=== PATIENT | female | born 1940 | race Caucasian/White ===

== ENCOUNTER 2016-11-27 12:59 | Outpatient (CLI) | payer MEDICARE | END 2016-11-27 13:00 | disposition home or self-care (01) | DX: R60.0 Localized edema (principal) ==

== ENCOUNTER 2016-12-25 10:16 | Outpatient (CLI) | payer MEDICARE ==
[2016-12-25 18:49] LABS: BASOPHILS # (AUTO) 0.1 10^3/uL (0.0-0.1); EOSINOPHILS # (AUTO) 0.3 10^3/uL (0.0-0.7); EOSINOPHILS % (AUTO) 4.7 %; HCT - HEMATOCRIT 41.8 % (37.0-47.0); HGB - HEMOGLOBIN 13.4 g/dL (12.0-16.0); LYMPHOCYTES # (AUTO) 1.9 10^3/uL (1.5-3.5); LYMPHOCYTES % (AUTO) 25.5 %; MEAN CORPUSCULAR HEMOGLOBIN 31.3 pg (27.0-31.0); MEAN CORPUSCULAR VOLUME 97.7 fL (81.0-99.0); MEAN PLATELET VOLUME 10.5 fL (7.9-10.8); MONOCYTES # (AUTO) 0.7 10^3/uL (0.0-1.0); MONOCYTES % (AUTO) 9.7 %; NEUTROPHILS # (AUTO) 4.4 10^3/uL (1.5-6.6); NEUTROPHILS % (AUTO) 59.1 %; NUCLEATED RED BLOOD CELLS AUTO 0.2 /100WBC; RED BLOOD COUNT 4.27 10^6/uL (4.20-5.40); RED CELL DISTRIBUTION WIDTH 14.2 % (12.0-15.0); UNCORRECTED WHITE BLOOD COUNT 7.4 x10^3/uL; WHITE BLOOD COUNT 7.4 x10^3/uL (4.8-10.8)
[2016-12-25 19:41] LABS: ALBUMIN/GLOBULIN RATIO 1.3 (1.0-2.2); BILIRUBIN,TOTAL 0.6 mg/dL (0.2-1.0); BUN - BLOOD UREA NITROGEN 29 mg/dL (6-20); CALCIUM 9.1 mg/dL (8.5-10.3); CARBON DIOXIDE - CO2 24 mmol/L (21-32); CHLORIDE 107 mmol/L (101-111); CHOLESTEROL 228 mg/dL; CREATININE 1.1 mg/dL (0.4-1.0); GFR - MDRD 48 (>89); GLUCOSE 111 mg/dL (70-100); HDL CHOLESTEROL 57 mg/dL; LDL/HDL RATIO 2.4 (<4.4); POTASSIUM 4.2 mmol/L (3.5-5.0); SODIUM 141 mmol/L (135-145); TOTAL PROTEIN 6.7 g/dL (6.7-8.2); TRIGLYCERIDES 166 mg/dL; VLDL CHOLESTEROL 33 mg/dL
== END 2016-12-25 10:17 | disposition home or self-care (01) ==
LOC: LAB.F 10:16
PROVIDERS: ATTEND Family Medicine
DX: R60.0 Localized edema (principal); R53.83 Other fatigue; D50.9 Iron deficiency anemia, unspecified; I10 Essential (primary) hypertension
CPT/HCPCS: 36415; 80053; 80061; 85025

== ENCOUNTER 2017-01-05 11:06 | Outpatient (CLI) | payer MEDICARE | END 2017-01-05 11:07 | disposition home or self-care (01) | DX: R73.01 Impaired fasting glucose (principal) ==

== ENCOUNTER 2017-02-09 13:36 | Outpatient (CLI) | payer MEDICARE | END 2017-02-09 13:37 | disposition home or self-care (01) | DX: Z12.31 Encounter for screening mammogram for malignant neoplasm of breast (principal) ==

== ENCOUNTER 2017-03-02 14:19 | Outpatient (CLI) | payer MEDICARE | END 2017-03-02 14:20 | disposition home or self-care (01) | DX: N63 Unspecified lump in breast (principal) | CPT/HCPCS: 76642; G0206 ==

== ENCOUNTER 2017-07-05 10:10 | Outpatient (CLI) | payer MEDICARE ==
[2017-07-05 18:23] LABS: BUN - BLOOD UREA NITROGEN 31 mg/dL (6-20); CALCIUM 8.7 mg/dL (8.5-10.3); CARBON DIOXIDE - CO2 24 mmol/L (21-32); CHLORIDE 111 mmol/L (101-111); CHOL/HDL RATIO 3.8 (<4.4); CHOLESTEROL 226 mg/dL; CREATININE 1.1 mg/dL (0.4-1.0); GFR - MDRD 48 (>89); GLUCOSE 109 mg/dL (70-100); HDL CHOLESTEROL 60 mg/dL; LDL/HDL RATIO 2.2 (<4.4); POTASSIUM 3.9 mmol/L (3.5-5.0); SODIUM 139 mmol/L (135-145); TRIGLYCERIDES 159 mg/dL; VLDL CHOLESTEROL 32 mg/dL
[2017-07-05 18:55] LABS: HEMOGLOBIN A1C 0.55 g/dL
== END 2017-07-05 10:11 | disposition home or self-care (01) ==
LOC: LAB.F 10:10
PROVIDERS: ATTEND Internal Medicine
DX: I10 Essential (primary) hypertension (principal)
CPT/HCPCS: 36415; 80048; 80061; 83036

== ENCOUNTER 2017-11-08 15:01 | Outpatient (CLI) | payer MEDICARE ==
[2017-11-08 18:51] LABS: BASOPHILS # (AUTO) 0.1 10^3/uL (0.0-0.1); EOSINOPHILS # (AUTO) 0.3 10^3/uL (0.0-0.7); EOSINOPHILS % (AUTO) 3.3 %; HCT - HEMATOCRIT 40.3 % (37.0-47.0); HGB - HEMOGLOBIN 13.1 g/dL (12.0-16.0); LYMPHOCYTES # (AUTO) 1.9 10^3/uL (1.5-3.5); LYMPHOCYTES % (AUTO) 19.7 %; MEAN CORPUSCULAR HEMOGLOBIN 32.6 pg (27.0-31.0); MEAN CORPUSCULAR HGB CONC 32.5 g/dL (32.0-36.0); MEAN CORPUSCULAR VOLUME 100.2 fL (81.0-99.0); MEAN PLATELET VOLUME 10.1 fL (7.9-10.8); MONOCYTES # (AUTO) 0.9 10^3/uL (0.0-1.0); NEUTROPHILS # (AUTO) 6.4 10^3/uL (1.5-6.6); RED BLOOD COUNT 4.03 10^6/uL (4.20-5.40); RED CELL DISTRIBUTION WIDTH 13.8 % (12.0-15.0); UNCORRECTED WHITE BLOOD COUNT 9.5 x10^3/uL; WHITE BLOOD COUNT 9.5 x10^3/uL (4.8-10.8)
[2017-11-08 19:00] LABS: ALBUMIN/GLOBULIN RATIO 1.3 (1.0-2.2); BILIRUBIN,TOTAL 0.4 mg/dL (0.2-1.0); CALCIUM 9.1 mg/dL (8.5-10.3); CREATININE 1.2 mg/dL (0.4-1.0); POTASSIUM 4.3 mmol/L (3.5-5.0); TOTAL PROTEIN 6.9 g/dL (6.7-8.2)
== END 2017-11-08 15:02 | disposition home or self-care (01) ==
LOC: LAB.F 15:01
PROVIDERS: ATTEND Physician Assistant Medical
DX: I10 Essential (primary) hypertension (principal)
CPT/HCPCS: 36415; 80053; 85025

== ENCOUNTER 2018-01-29 13:49 | Outpatient (CLI) | payer MEDICARE ==
[2018-01-29 17:42] LABS: BUN - BLOOD UREA NITROGEN 23 mg/dL (6-20); CALCIUM 9.3 mg/dL (8.5-10.3); CARBON DIOXIDE - CO2 24 mmol/L (21-32); CHLORIDE 106 mmol/L (101-111); CHOL/HDL RATIO 5.5 (<4.4); CHOLESTEROL 225 mg/dL; CREATININE 1.1 mg/dL (0.4-1.0); GFR - MDRD 48 (>89); GLUCOSE 101 mg/dL (70-100); HDL CHOLESTEROL 41 mg/dL; LDL CHOLESTEROL,CALCULATED 142 mg/dL; LDL/HDL RATIO 3.5 (<4.4); SODIUM 138 mmol/L (135-145); VLDL CHOLESTEROL 42 mg/dL
[2018-01-29 17:58] LABS: HB2 TOTAL 14.4 g/dL; HEMOGLOBIN A1C 0.54 g/dL; HEMOGLOBIN A1C % 5.6 % (4.6-6.2)
== END 2018-01-29 13:50 | disposition home or self-care (01) ==
LOC: LAB.F 13:49
PROVIDERS: ATTEND Physician Assistant Medical
DX: N28.9 Disorder of kidney and ureter, unspecified (principal); E78.00 Pure hypercholesterolemia, unspecified; R73.01 Impaired fasting glucose
CPT/HCPCS: 36415; 80048; 80061; 83036; 83721

== ENCOUNTER 2018-08-16 11:06 | Outpatient (CLI) | payer MEDICARE ==
--- NOTE | 2018-08-19 10:10 | Mammography Report ---
Reason: SCREENING MAMMO Procedure Date: 08/16/2018 Accession Number: [id number] / [id number] Procedure: MEAGAN - Screening Mammo Dig Bilat CPT Code: FULL RESULT: EXAM: Screening Mammo Dig Bilat DATE: 08/16/2018 11:36 AM CLINICAL HISTORY: 78 year-old nulliparous female with history of early menses. TECHNIQUE: Bilateral CC and MLO views were obtained. COMPARISON: 03/02/2017, 02/09/2017, 12/07/2015, 09/18/2012. FINDINGS: The breasts demonstrate scattered fibroglandular densities bilaterally. Postsurgical changes are noted bilaterally, unchanged. No suspicious masses, clustered microcalcifications, or regions of architectural distortion are identified. IMPRESSION: Benign findings RECOMMENDATION: Routine annual screening unless otherwise clinically indicated. BIRADS CATEGORY 2: Benign findings STANDARD QUALIFYING STATEMENTS: 1. This examination was not reviewed with the aid of Computer-Aided Detection (CAD). 2. A negative or benign imaging report should not delay biopsy if clinically suspicious findings are present. Consider surgical consultation if warrented. More than 5% of cancers are not identified by imaging. 3. Dense breasts may obscure an underlying neoplasm. 4. This examination was reviewed without the aid of 3D breast imaging (tomosynthesis).
== END 2018-08-16 11:07 | disposition home or self-care (01) ==
LOC: DI 11:06
DX: Z12.31 Encounter for screening mammogram for malignant neoplasm of breast (principal)
CPT/HCPCS: 77067

== ENCOUNTER 2018-12-09 12:25 | Outpatient (CLI) | payer MEDICARE ==
[2018-12-09 17:48] LABS: BASOPHILS # (AUTO) 0.1 10^3/uL (0.0-0.1); BASOPHILS % (AUTO) 1.2 %; EOSINOPHILS # (AUTO) 0.2 10^3/uL (0.0-0.7); EOSINOPHILS % (AUTO) 3.6 %; HGB - HEMOGLOBIN 13.3 g/dL (12.0-16.0); LYMPHOCYTES # (AUTO) 1.7 10^3/uL (1.5-3.5); MEAN CORPUSCULAR HEMOGLOBIN 32.6 pg (27.0-31.0); MEAN CORPUSCULAR HGB CONC 32.3 g/dL (32.0-36.0); MEAN CORPUSCULAR VOLUME 100.8 fL (81.0-99.0); MEAN PLATELET VOLUME 9.4 fL (7.9-10.8); MONOCYTES # (AUTO) 0.6 10^3/uL (0.0-1.0); MONOCYTES % (AUTO) 10.6 %; NEUTROPHILS % (AUTO) 53.6 %; PLT - PLATELET COUNT 193 10^3/uL (130-450); RED BLOOD COUNT 4.08 10^6/uL (4.20-5.40); RED CELL DISTRIBUTION WIDTH 13.8 % (12.0-15.0); WHITE BLOOD COUNT 5.6 x10^3/uL (4.8-10.8)
[2018-12-09 17:58] LABS: PLATELET MORPHOLOGY PLATELET CLUMPING (NORMAL)
[2018-12-09 17:59] LABS: ALBUMIN 3.8 g/dL (3.2-5.5); ALBUMIN/GLOBULIN RATIO 1.2 (1.0-2.2); ALKALINE PHOSPHATASE 52 IU/L (42-121); ALT ALANINE AMINOTRANSFERASE 24 IU/L (10-60); AST ASPARTATE AMINOTRANSFERASE 22 IU/L (10-42); BILIRUBIN,TOTAL 0.6 mg/dL (0.2-1.0); BUN - BLOOD UREA NITROGEN 32 mg/dL (6-20); CARBON DIOXIDE - CO2 26 mmol/L (21-32); CHLORIDE 104 mmol/L (101-111); CHOL/HDL RATIO 4.8 (<4.4); CHOLESTEROL 260 mg/dL; CREATININE 1.1 mg/dL (0.4-1.0); GFR - MDRD 48 (>89); GLUCOSE 99 mg/dL (70-100); HDL CHOLESTEROL 54 mg/dL; LDL CHOLESTEROL,CALCULATED 172 mg/dL; LDL/HDL RATIO 3.2 (<4.4); PLATELET ESTIMATE, MANUAL NORMAL (130-450,000) (NORMAL); RBC MORPHOLOGY (MULTIPLE) 1+ MACROCYTOSIS (NORMAL); SODIUM 137 mmol/L (135-145); TOTAL PROTEIN 6.9 g/dL (6.7-8.2); VLDL CHOLESTEROL 34 mg/dL
[2018-12-09 18:19] LABS: HB2 TOTAL 14.1 g/dL; HEMOGLOBIN A1C 0.48 g/dL; HEMOGLOBIN A1C % 5.3 % (4.6-6.2)
== END 2018-12-09 12:26 | disposition home or self-care (01) ==
LOC: LAB.F 12:25
PROVIDERS: ATTEND Physician Assistant Medical
DX: I10 Essential (primary) hypertension (principal); E78.00 Pure hypercholesterolemia, unspecified; R73.01 Impaired fasting glucose
CPT/HCPCS: 36415; 80053; 80061; 83036; 83721; 85025

== ENCOUNTER 2019-05-11 23:13 | Outpatient (CLI) | payer MEDICARE | END 2019-05-11 23:14 | disposition EMS.NT | LOC: EMS 23:13 | PROVIDERS: ATTEND Surgery | DX: Z03.89 Encounter for observation for other suspected diseases and conditions ruled out (principal) ==

== ENCOUNTER 2019-06-17 12:50 | Outpatient (CLI) | payer MEDICARE ==
[2019-06-17 17:44] LABS: CHOL/HDL RATIO 2.7 (<4.4); CHOLESTEROL 200 mg/dL; HDL CHOLESTEROL 74 mg/dL; LDL CHOLESTEROL,CALCULATED 109 mg/dL; LDL/HDL RATIO 1.5 (<4.4); VLDL CHOLESTEROL 17 mg/dL
== END 2019-06-17 12:51 | disposition home or self-care (01) ==
LOC: LAB.S 12:50
PROVIDERS: ATTEND Physician Assistant Medical
DX: E78.00 Pure hypercholesterolemia, unspecified (principal)
CPT/HCPCS: 36415; 80061; 83721

== ENCOUNTER 2019-08-15 15:22 | Outpatient (CLI) | payer MEDICARE ==
[2019-08-15 18:17] LABS: ALBUMIN 3.6 g/dL (3.2-5.5); ALBUMIN/GLOBULIN RATIO 1.1 (1.0-2.2); BILIRUBIN,TOTAL 0.6 mg/dL (0.2-1.0); CALCIUM 9.1 mg/dL (8.5-10.3); CREATININE 1.1 mg/dL (0.4-1.0); TOTAL PROTEIN 6.8 g/dL (6.7-8.2)
[2019-08-15 19:26] LABS: HB2 TOTAL 12.9 g/dL; HEMOGLOBIN A1C 0.44 g/dL; HEMOGLOBIN A1C % 5.3 % (4.6-6.2)
== END 2019-08-15 15:23 | disposition home or self-care (01) ==
LOC: LAB.S 15:22
PROVIDERS: ATTEND Physician Assistant Medical
DX: R73.9 Hyperglycemia, unspecified (principal); Z79.899 Other long term (current) drug therapy
CPT/HCPCS: 36415; 80053; 83036

== ENCOUNTER 2019-12-04 14:35 | Outpatient (CLI) | payer MEDICARE ==
[2019-12-04 18:53] LABS: CALCIUM 9.3 mg/dL (8.5-10.3); CREATININE 1.3 mg/dL (0.4-1.0)
== END 2019-12-04 14:36 | disposition home or self-care (01) ==
LOC: LAB.S 14:35
PROVIDERS: ATTEND Physician Assistant Medical
DX: N28.9 Disorder of kidney and ureter, unspecified (principal)
CPT/HCPCS: 36415; 80048

== ENCOUNTER 2020-01-25 06:23 | Outpatient (CLI) | payer MEDICARE | END 2020-01-25 06:24 | disposition EMS.NT | LOC: EMS 06:23 | PROVIDERS: ATTEND Surgery | DX: Z03.89 Encounter for observation for other suspected diseases and conditions ruled out (principal) ==

== ENCOUNTER 2020-03-17 15:41 | Outpatient (CLI) | payer MEDICARE ==
[2020-03-17 16:18] LABS: CALCIUM 8.8 mg/dL (8.5-10.3); CREATININE 1.4 mg/dL (0.4-1.0)
[2020-03-17 16:21] LABS: CREATININE,URINE 277.2 mg/dL; PROTEIN/CREATININE RATIO,URINE 0.1 (<=0.2)
== END 2020-03-17 15:42 | disposition home or self-care (01) ==
LOC: LAB 15:41
PROVIDERS: ATTEND Internal Medicine Nephrology
DX: N05.9 Unspecified nephritic syndrome with unspecified morphologic changes (principal); I50.32 Chronic diastolic (congestive) heart failure; D47.2 Monoclonal gammopathy; R80.9 Proteinuria, unspecified
CPT/HCPCS: 36415; 80048; 81599; 82570; 83880; 84155; 84156; 84165; 86334

== ENCOUNTER 2020-04-27 15:53 | Outpatient (CLI) | payer MEDICARE ==
[2020-04-27 19:59] LABS: CREATININE 1.2 mg/dL (0.4-1.0)
== END 2020-04-27 15:54 | disposition home or self-care (01) ==
LOC: LAB.S 15:53
PROVIDERS: ATTEND Internal Medicine Nephrology
DX: N05.9 Unspecified nephritic syndrome with unspecified morphologic changes (principal)
CPT/HCPCS: 36415; 80048

== ENCOUNTER 2020-05-07 13:22 | Outpatient (CLI) | payer MEDICARE ==
[2020-05-07 13:56] LABS: CHOL/HDL RATIO 2.1 (<4.4); CHOLESTEROL 155 mg/dL; HDL CHOLESTEROL 73 mg/dL; LDL CHOLESTEROL,CALCULATED 59 mg/dL; LDL/HDL RATIO 0.8 (<4.4); VLDL CHOLESTEROL 23 mg/dL
[2020-05-07 14:10] LABS: HB2 TOTAL 14.3 g/dL; HEMOGLOBIN A1C 0.51 g/dL; HEMOGLOBIN A1C % 5.4 % (4.6-6.2)
== END 2020-05-07 13:23 | disposition home or self-care (01) ==
LOC: LAB 13:22
PROVIDERS: ATTEND Physician Assistant
DX: R73.01 Impaired fasting glucose (principal); E78.00 Pure hypercholesterolemia, unspecified
CPT/HCPCS: 36415; 80061; 83036; 83721

== ENCOUNTER 2020-08-25 15:03 | Outpatient (CLI) | payer MEDICARE ==
[2020-08-25 20:59] LABS: HEMOGLOBIN A1c% 5.4 % (4.27-6.07)
[2020-08-25 21:15] LABS: ALBUMIN 3.7 g/dL (3.2-5.5); ALBUMIN/GLOBULIN RATIO 1.1 (1.0-2.2); ALKALINE PHOSPHATASE 64 IU/L (42-121); ALT ALANINE AMINOTRANSFERASE 20 IU/L (10-60); AST ASPARTATE AMINOTRANSFERASE 24 IU/L (10-42); BILIRUBIN,TOTAL 0.5 mg/dL (0.2-1.0); BUN - BLOOD UREA NITROGEN 28 mg/dL (6-20); CARBON DIOXIDE - CO2 27 mmol/L (21-32); CHLORIDE 102 mmol/L (101-111); CHOL/HDL RATIO 2.5 (<4.4); CHOLESTEROL 189 mg/dL; CREATININE 1.1 mg/dL (0.4-1.0); GLUCOSE 107 mg/dL (70-100); HDL CHOLESTEROL 76 mg/dL; LDL CHOLESTEROL,CALCULATED 86 mg/dL; LDL/HDL RATIO 1.1 (<4.4); SODIUM 137 mmol/L (135-145); VLDL CHOLESTEROL 27 mg/dL
== END 2020-08-25 15:04 | disposition home or self-care (01) ==
LOC: LAB.S 15:03
PROVIDERS: ATTEND Physician Assistant
DX: I10 Essential (primary) hypertension (principal); R60.9 Edema, unspecified; R73.01 Impaired fasting glucose; N28.9 Disorder of kidney and ureter, unspecified; E78.00 Pure hypercholesterolemia, unspecified
CPT/HCPCS: 36415; 80053; 80061; 83036; 83721

== ENCOUNTER 2021-01-26 12:32 | Outpatient (CLI) | payer MEDICARE ==
--- NOTE | 2021-01-27 14:17 | Mammography Report ---
BILATERAL DIGITAL SCREENING MAMMOGRAM 3D/2D: 01/26/2021 CLINICAL: Routine screening. Comparison is made to exams dated: 08/12/2018 mammogram, 03/02/2017 mammogram, 03/02/2017 ultrasound, mammogram, 12/07/2015 mammogram, and 09/18/2012 mammogram - [facility]. The tissue of both breasts is predominantly fatty. There are benign post operative findings in the right breast. No significant masses, calcifications, or other findings are seen in either breast. There has been no significant interval change. IMPRESSION: BENIGN There is no mammographic evidence of malignancy. A 1 year screening mammogram is recommended. This exam was interpreted at Station ID: [id number]. NOTE: For mammograms, a report in lay terms will be sent to the patient. Approximately 15% of breast malignancies will not be visualized mammographically. In the management of a palpable breast mass, a negative mammogram must not discourage biopsy of a clinically suspicious lesion. Electronically Signed By: Akira Krause M.D. at/limarad:01/26/2021 15:58:14 ACR BI-RADS Category 2: Benign Finding(s) 3342F PARENCHYMAL PATTERN: (F) - The breast(s) demonstrate(s) diffuse fatty replacement. BI-RADS CATEGORY: (2) - 2 RECOMMENDATION: (ANNUAL) - Recommend routine annual screening mammography. [id number] 1 year screening LATERALITY: (B)
== END 2021-01-26 12:33 | disposition home or self-care (01) ==
LOC: DI 12:32
DX: Z12.31 Encounter for screening mammogram for malignant neoplasm of breast (principal)

== ENCOUNTER 2021-03-24 12:23 | Outpatient (CLI) | payer MEDICARE ==
[2021-03-24 14:46] LABS: BASOPHILS # (AUTO) 0.1 10^3/uL (0.0-0.1); BASOPHILS % (AUTO) 1.1 %; EOSINOPHILS # (AUTO) 0.2 10^3/uL (0.0-0.7); EOSINOPHILS % (AUTO) 2.5 %; HGB - HEMOGLOBIN 13.2 g/dL (12.0-16.0); LYMPHOCYTES # (AUTO) 1.9 10^3/uL (1.5-3.5); LYMPHOCYTES % (AUTO) 30.6 %; MEAN CORPUSCULAR HEMOGLOBIN 32.6 pg (27.0-31.0); MEAN CORPUSCULAR HGB CONC 32.2 g/dL (32.0-36.0); MEAN CORPUSCULAR VOLUME 101.2 fL (81.0-99.0); MEAN PLATELET VOLUME 11.1 fL (7.9-10.8); MONOCYTES # (AUTO) 0.6 10^3/uL (0.0-1.0); MONOCYTES % (AUTO) 9.4 %; NEUTROPHILS # (AUTO) 3.6 10^3/uL (1.5-6.6); NEUTROPHILS % (AUTO) 56.2 %; PLT - PLATELET COUNT 124 10^3/uL (130-450); RED BLOOD COUNT 4.05 10^6/uL (4.20-5.40); RED CELL DISTRIBUTION WIDTH 12.9 % (12.0-15.0); WHITE BLOOD COUNT 6.4 x10^3/uL (4.8-10.8)
[2021-03-24 15:05] LABS: ALBUMIN 3.9 g/dL (3.2-5.5); ALBUMIN/GLOBULIN RATIO 1.2 (1.0-2.2); ALKALINE PHOSPHATASE 52 IU/L (42-121); ALT ALANINE AMINOTRANSFERASE 19 IU/L (10-60); AST ASPARTATE AMINOTRANSFERASE 23 IU/L (10-42); BILIRUBIN,TOTAL 0.9 mg/dL (0.2-1.0); BUN - BLOOD UREA NITROGEN 30 mg/dL (6-20); CALCIUM 9.2 mg/dL (8.5-10.3); CARBON DIOXIDE - CO2 25 mmol/L (21-32); CHLORIDE 105 mmol/L (101-111); CHOL/HDL RATIO 2.5 (<4.4); CHOLESTEROL 145 mg/dL; CREATININE 1.3 mg/dL (0.4-1.0); GFR - MDRD 39 (>89); GLUCOSE 101 mg/dL (70-100); HDL CHOLESTEROL 59 mg/dL; LDL CHOLESTEROL,CALCULATED 55 mg/dL; LDL/HDL RATIO 0.9 (<4.4); POTASSIUM 3.9 mmol/L (3.5-5.0); SODIUM 142 mmol/L (135-145); TOTAL PROTEIN 7.1 g/dL (6.7-8.2); TRIGLYCERIDES 154 mg/dL; VLDL CHOLESTEROL 31 mg/dL
[2021-03-24 15:14] LABS: THYROID STIMULATING HORMONE 4.61 uIU/mL (0.34-5.60)
[2021-03-24 20:14] LABS: ESTIMATED AVERAGE GLUCOSE 100 mg/dL (70-100); HEMOGLOBIN A1c% 5.1 % (4.27-6.07)
== END 2021-03-24 12:24 | disposition home or self-care (01) ==
LOC: LAB.S 12:23
PROVIDERS: ATTEND Physician Assistant
DX: I10 Essential (primary) hypertension (principal); R60.9 Edema, unspecified; N28.9 Disorder of kidney and ureter, unspecified; R73.01 Impaired fasting glucose; E78.00 Pure hypercholesterolemia, unspecified; Z68.42 Body mass index [BMI] 45.0-49.9, adult
CPT/HCPCS: 36415; 80053; 80061; 83036; 83721; 83880; 84443; 85025

== ENCOUNTER 2021-05-19 02:21 | Outpatient (CLI) | payer MEDICARE | END 2021-05-19 02:22 | disposition EMS.NT | LOC: EMS 02:21 | DX: Z03.89 Encounter for observation for other suspected diseases and conditions ruled out (principal) ==

== ENCOUNTER 2021-05-27 14:39 | Outpatient (CLI) | payer MEDICARE ==
[2021-05-27 19:45] LABS: HCT - HEMATOCRIT 41.4 % (37.0-47.0); HGB - HEMOGLOBIN 13.1 g/dL (12.0-16.0); MEAN CORPUSCULAR HEMOGLOBIN 32.1 pg (27.0-31.0); MEAN CORPUSCULAR HGB CONC 31.6 g/dL (32.0-36.0); MEAN CORPUSCULAR VOLUME 101.5 fL (81.0-99.0); MEAN PLATELET VOLUME 10.1 fL (7.9-10.8); RED BLOOD COUNT 4.08 10^6/uL (4.20-5.40); RED CELL DISTRIBUTION WIDTH 13.9 % (12.0-15.0); WHITE BLOOD COUNT 6.1 x10^3/uL (4.8-10.8)
[2021-05-27 19:59] LABS: CALCIUM 8.9 mg/dL (8.5-10.3); CREATININE 1.2 mg/dL (0.4-1.0); POTASSIUM 3.8 mmol/L (3.5-5.0)
== END 2021-05-27 14:40 | disposition home or self-care (01) ==
LOC: LAB.S 14:39
PROVIDERS: ATTEND Internal Medicine Nephrology
DX: N05.9 Unspecified nephritic syndrome with unspecified morphologic changes (principal); D70.9 Neutropenia, unspecified; D63.1 Anemia in chronic kidney disease; R80.9 Proteinuria, unspecified
CPT/HCPCS: 36415; 80048; 82570; 84156; 85027

== ENCOUNTER 2021-05-30 08:00 | Outpatient (CLI) | payer MEDICARE ==
[2021-05-30 20:29] LABS: CREATININE,URINE 220.5 mg/dL; PROTEIN/CREATININE RATIO,URINE 0.1 (<=0.2)
== END 2021-05-30 23:59 | disposition home or self-care (01) ==
LOC: LAB.S 08:00
PROVIDERS: ATTEND Internal Medicine Nephrology
DX: R80.9 Proteinuria, unspecified (principal)
CPT/HCPCS: 82570; 84156

== ENCOUNTER 2022-04-21 16:59 | Outpatient (CLI) | payer MEDICARE | END 2022-04-21 17:00 | disposition left against medical advice (07) | LOC: EMS 16:59 | DX: R53.1 Weakness (principal) ==

== ENCOUNTER 2022-05-11 12:37 | Outpatient (CLI) | payer MEDICARE ==
[2022-05-11 15:04] LABS: BASOPHILS # (AUTO) 0.1 10^3/uL (0.0-0.1); EOSINOPHILS # (AUTO) 0.1 10^3/uL (0.0-0.7); EOSINOPHILS % (AUTO) 1.4 %; HCT - HEMATOCRIT 39.6 % (37.0-47.0); HGB - HEMOGLOBIN 12.9 g/dL (12.0-16.0); LYMPHOCYTES # (AUTO) 1.3 10^3/uL (1.5-3.5); LYMPHOCYTES % (AUTO) 15.8 %; MEAN CORPUSCULAR HEMOGLOBIN 32.6 pg (27.0-31.0); MEAN CORPUSCULAR HGB CONC 32.6 g/dL (32.0-36.0); MEAN PLATELET VOLUME 10.6 fL (7.9-10.8); MONOCYTES # (AUTO) 0.5 10^3/uL (0.0-1.0); MONOCYTES % (AUTO) 6.8 %; NEUTROPHILS % (AUTO) 74.7 %; PLT - PLATELET COUNT 248 10^3/uL (130-450); RED BLOOD COUNT 3.96 10^6/uL (4.20-5.40); RED CELL DISTRIBUTION WIDTH 12.8 % (12.0-15.0)
[2022-05-11 15:16] LABS: ALBUMIN 3.4 g/dL (3.2-5.5); ALKALINE PHOSPHATASE 77 IU/L (42-121); ALT ALANINE AMINOTRANSFERASE 15 IU/L (10-60); AST ASPARTATE AMINOTRANSFERASE 22 IU/L (10-42); BILIRUBIN,TOTAL 0.6 mg/dL (0.2-1.0); BUN - BLOOD UREA NITROGEN 27 mg/dL (6-20); CALCIUM 8.4 mg/dL (8.5-10.3); CARBON DIOXIDE - CO2 25 mmol/L (21-32); CHLORIDE 98 mmol/L (101-111); CHOL/HDL RATIO 4.3 (<4.4); CHOLESTEROL 182 mg/dL; CREATININE 1.8 mg/dL (0.4-1.0); GFR - MDRD 27 (>89); GLUCOSE 108 mg/dL (70-100); HDL CHOLESTEROL 42 mg/dL; LDL CHOLESTEROL,CALCULATED 120 mg/dL; LDL/HDL RATIO 2.9 (<4.4); POTASSIUM 3.5 mmol/L (3.5-5.0); SODIUM 140 mmol/L (135-145); TOTAL PROTEIN 6.8 g/dL (6.7-8.2); TRIGLYCERIDES 101 mg/dL; VLDL CHOLESTEROL 20 mg/dL
== END 2022-05-11 12:38 | disposition home or self-care (01) ==
LOC: LAB.S 12:37
PROVIDERS: ATTEND Registered Nurse
DX: I12.9 Hypertensive chronic kidney disease with stage 1 through stage 4 chronic kidney disease, or unspecified chronic kidney disease (principal); N18.32 Chronic kidney disease, stage 3b
CPT/HCPCS: 36415; 80053; 80061; 83721; 85025

== ENCOUNTER 2022-07-14 08:00 | Outpatient (CLI) | payer MEDICARE | END 2022-07-14 23:59 | disposition home or self-care (01) | LOC: LAB 08:00 | PROVIDERS: ATTEND Physician Assistant | DX: R32 Unspecified urinary incontinence (principal) | CPT/HCPCS: 87077; 87086; 87181 ==

== ENCOUNTER 2022-07-14 14:15 | Outpatient (CLI) | payer MEDICARE ==
[2022-07-14 20:39] LABS: CALCIUM 8.3 mg/dL (8.5-10.3); CREATININE 1.4 mg/dL (0.4-1.0); POTASSIUM 3.1 mmol/L (3.5-5.0)
== END 2022-07-14 14:16 | disposition home or self-care (01) ==
LOC: LAB.S 14:15
PROVIDERS: ATTEND Internal Medicine Nephrology
DX: N05.9 Unspecified nephritic syndrome with unspecified morphologic changes (principal); N30.00 Acute cystitis without hematuria
CPT/HCPCS: 36415; 80048; 81001; 81003; 87086

== ENCOUNTER 2022-07-19 13:39 | Outpatient (CLI) | payer MEDICARE | END 2022-07-19 13:40 | disposition critical access hospital (66) | LOC: EMS 13:39 | DX: R62.7 Adult failure to thrive (principal); N39.0 Urinary tract infection, site not specified; Z59.48 Other specified lack of adequate food; Z59.89 Other problems related to housing and economic circumstances; Z74.8 Other problems related to care provider dependency | CPT/HCPCS: A0425; A0429 ==

== ENCOUNTER 2022-07-19 14:07 | Emergency (ER) | payer MEDICARE ==
[2022-07-19] MEDS ORDERED: SODIUM CHLORIDE 0.9% 1,000 ML IV STA (15:00)
[2022-07-19 15:22] LABS: BASOPHILS # (AUTO) 0.1 10^3/uL (0.0-0.1); BASOPHILS % (AUTO) 0.5 %; EOSINOPHILS % (AUTO) 0.1 %; HCT - HEMATOCRIT 40.4 % (37.0-47.0); HGB - HEMOGLOBIN 13.5 g/dL (12.0-16.0); LYMPHOCYTES # (AUTO) 0.9 10^3/uL (1.5-3.5); MEAN CORPUSCULAR HEMOGLOBIN 32.8 pg (27.0-31.0); MEAN CORPUSCULAR HGB CONC 33.4 g/dL (32.0-36.0); MEAN CORPUSCULAR VOLUME 98.1 fL (81.0-99.0); MEAN PLATELET VOLUME 11.1 fL (7.9-10.8); MONOCYTES # (AUTO) 0.7 10^3/uL (0.0-1.0); MONOCYTES % (AUTO) 4.5 %; NEUTROPHILS # (AUTO) 13.1 10^3/uL (1.5-6.6); NEUTROPHILS % (AUTO) 88.4 %; PLT - PLATELET COUNT 365 10^3/uL (130-450); RED BLOOD COUNT 4.12 10^6/uL (4.20-5.40); RED CELL DISTRIBUTION WIDTH 14.7 % (12.0-15.0); WHITE BLOOD COUNT 14.8 x10^3/uL (4.8-10.8)
--- NOTE | 2022-07-19 16:06 | XRAY Report ---
PROCEDURE: Chest 1 View X-Ray INDICATIONS: chest pain TECHNIQUE: One view of the chest was acquired. COMPARISON: None FINDINGS: Surgical changes and devices: None. Lungs and pleura: No pleural effusions or pneumothorax. Lungs are clear. Mediastinum: Mediastinal contours appear normal. Heart size is normal. Bones and chest wall: No suspicious bony lesions. Overlying soft tissues appear unremarkable. IMPRESSION: No acute pulmonary process. Reviewed by: Edwige Muller MD on 07/19/2022 4:05 PM PDT Approved by: Edwige Muller MD on 07/19/2022 4:05 PM PDT Station ID: [id number]
[2022-07-19 16:24] LABS: ALBUMIN 3.3 g/dL (3.2-5.5); BILIRUBIN,TOTAL 1.8 mg/dL (0.2-1.0); CALCIUM 8.2 mg/dL (8.5-10.3); CREATININE 1.3 mg/dL (0.4-1.0); MAGNESIUM 1.1 mg/dL (1.7-2.8); TOTAL PROTEIN 6.6 g/dL (6.7-8.2)
[2022-07-19] MEDS ORDERED: MAGNESIUM SULFATE 2 GRAM 2 GM/50 ML BAG IV ONE (17:26)
[2022-07-19] MEDS ORDERED: LACTATED RINGERS 1,000 ML IV STA (17:27)
[2022-07-19] MEDS ORDERED: cefTRIAXone 1 GM VIAL IVP STA (17:58)
--- NOTE | 2022-07-19 18:30 | CONSULTATION NOTE ---
History of Present Illness - History of Present Illness HPI Comment/Other: This is an 81-year-old white female who presented to the ED via ambulance because of weakness. She was diagnosed with a UTI several days ago and prescribed antibiotics but did not pick them up. Work-up in the ED shows she has normal vital signs, no fever, elevated white count of 14, mildly elevated creatinine of 1.3, and low K and Mg. She has been started on IV fluids. In review of microbiology data, her urine from several days ago is growing Klebsiella, sensitivities are available. 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 History - Past Medical History Cardiovascular: reports: Hypertension Respiratory: reports: Pneumonia, Shortness of breath Endocrine/Autoimmune: reports: None GI: reports: GERD : reports: Chronic bladder infection HEENT: reports: None, Other Psych: reports: None Musculoskeletal: reports: Osteoarthritis Derm: reports: None MRSA Hx?: No - Past Surgical History General: reports: Cholecystectomy, Appendectomy Ortho: reports: Other - Family & Social History Living arrangement: At home Meds/Allgy - Home Medications Home Medications: Ambulatory Orders Medication Instructions Recorded Confirmed Naproxen Sodium/P-Ephed HCl [Aleve 1 each PO BID 06/09/16 06/12/16 Sinus and Headache Cplt] Omeprazole [PriLOSEC] 20 mg PO DAILY 06/09/16 06/12/16 Quinapril HCl 20 mg PO BID 06/09/16 06/12/16 atenoloL [Atenolol] 25 mg PO BID 06/09/16 06/12/16 hydroCHLOROthiazide [Hydrodiuril] 12.5 mg PO DAILY 06/09/16 06/12/16 - Allergies Allergies/Adverse Reactions: Allergies Allergy/AdvReac Type Severity Reaction Status Date / Time Penicillins Allergy Itching Verified 07/19/22 14:37 Exam - Vital Signs Reviewed Vital Signs: Yes Vital Signs: Vital Signs x48h Temp Pulse Resp BP Pulse Ox 07/19/22 18:08 87 18 166/78 H 100 07/19/22 14:46 89 14 156/78 H 98 07/19/22 14:25 36.5 C 81 16 156/78 H 100 - Physical Exam General Appearance: positive: No acute distress, Alert Eyes Bilateral: positive: Normal inspection Neck: positive: Nml inspection Respiratory: positive: No respiratory distress Abdomen: positive: No distention Skin: positive: Pallor Conclusion/Plan - Problem List (1) UTI (urinary tract infection) Conclusion/Plan: The patient has an untreated UTI, with urine cultures positive for Klebsiella. Patient has signs of mild dehydration with elevated creatinine, low magnesium. Her weakness can be explained by the untreated UTI, and possibly by the volume depletion causing mild creat elevation and having a low potassium & magnesium. Recommendations: She should continue to get IV fluids and I agree with K and Mg replacement. She should be started on appropriate antibiotics. Her issue is that she lives alone and/or could not manage to get her antibiotic prescription to start treatment. This is an issue for Social Work, and not a clinical dilemma. She has no criteria for admitting her to be hospitalized. She may be discharged from the ED after the above management. This was discussed with Dr Whalen. Thank you for allowing me to participate in the care of this patient. - Lab Results Fish Bones: 07/19/22 15:17 07/19/22 15:17
--- NOTE | 2022-07-19 18:49 | ED Physician Documentation ---
PD HPI NVD - Stated complaint Stated Complaint: WEAKNESS - Chief complaint Chief Complaint: General - History obtained from History obtained from: Patient (.Patient states progressive general weakness for the last 4 to 5 days unable to get up well so has had poor p.o. intake. Unable to get up from her chair today due to weakness. She yelled for help and neighbors called the ambulance for her.), EMS (Patient was brought in by ambulance after neighbors heard her screaming for assistance. Patient states she has had 4 to 5 days of progressive general weakness and today was unable to get up from her chair. She had been not able to get up to let her dogs out so they had been stooling in the house.) - History of Present Illness Timing - onset: How many days ago (4-5) Timing - duration: Days (4-5) Timing - details: Gradual onset, Still present Associated symptoms: Loss of appetite, Dysuria (Had some dysuria symptoms last week and seen in the walk-in clinic with diagnosis UTI. She was ambulatory at that time.), Other (General malaise. No fever. [place] chills intermittently.). No: Fever, Abdominal pain Contributing factors: No: Sick contact, Bad food, Recent antibiotics (The patient was prescribed antibiotics for her UTI. They were transmitted to her mail pharmacy service. This was last Sunday in the medication had not come in over the weekend. Reportedly was coming in today.) Worsened by: Other (Patient lightheaded and weaker with attempting to ambulate.) Similar symptoms before: Has not had sx before Recently seen: Clinic (walk in clinic 07/14/22 for malaise/nausea/dysuria. Dx with UTI.) Review of Systems Constitutional: reports: Chills, Myalgias, Fatigue. denies: Fever Nose: denies: Rhinorrhea / runny nose, Congestion Throat: denies: Sore throat Respiratory: denies: Cough GI: reports: Nausea, Constipation. denies: Abdominal Pain, Vomiting, Diarrhea : reports: Dysuria Neurologic: reports: Generalized weakness (Difficulty getting up and walking for several days and unable to get up from her chair at all today. Needed to call loudly for help and neighbors called the ambulance.), Near syncope (with standing the past few days). denies: Focal weakness, Numbness, Altered mental status PD PAST MEDICAL HISTORY - Past Medical History Cardiovascular: Hypertension Respiratory: Pneumonia, Shortness of breath Endocrine/Autoimmune: None GI: GERD : Chronic bladder infection HEENT: None, Other Psych: None Musculoskeletal: Osteoarthritis Derm: None - Past Surgical History General: Cholecystectomy, Appendectomy Ortho: Other - Present Medications Home Medications: Ambulatory Orders Medication Instructions Recorded Confirmed Naproxen Sodium/P-Ephed HCl [Aleve 1 each PO BID 06/09/16 06/12/16 Sinus and Headache Cplt] Omeprazole [PriLOSEC] 20 mg PO DAILY 06/09/16 06/12/16 Quinapril HCl 20 mg PO BID 06/09/16 06/12/16 atenoloL [Atenolol] 25 mg PO BID 06/09/16 06/12/16 hydroCHLOROthiazide [Hydrodiuril] 12.5 mg PO DAILY 06/09/16 06/12/16 Ondansetron Odt [Zofran] 4 mg TL Q6H PRN #10 tablet 07/19/22 cephALEXin [Keflex] 500 mg PO TID #20 cap 07/19/22 - Allergies Allergies/Adverse Reactions: Allergies Allergy/AdvReac Type Severity Reaction Status Date / Time Penicillins Allergy Itching Verified 07/19/22 14:37 PD ED PE NORMAL - Vitals Vital signs reviewed: Yes - General General: Alert and oriented X 3, Well developed/nourished - HEENT HEENT: Atraumatic, Pharynx benign. No: Moist mucous membranes - Neck Neck: Supple, no meningeal sign, No adenopathy, No JVD - Cardiac Cardiac: No murmur. No: RRR (mild tachycardia on presentation. ) - Respiratory Respiratory: Clear bilaterally - Abdomen Abdomen: Normal bowel sounds, Soft, Non distended, No organomegaly, Other (Mild tenderness in the suprapubic area.) - Female Female : Deferred - Rectal Rectal: Deferred - Back Back: No CVA TTP - Derm Derm: Warm and dry. No: Normal color (mild pallor) - Extremities Extremities: No tenderness to palpate, Normal ROM s pain, No edema, No calf tenderness / cord - Neuro Neuro: Alert and oriented X 3, No motor deficit, No sensory deficit, Normal speech Results - Vitals Vitals: Vital Signs - 24 hr 07/19/22 07/19/22 07/19/22 14:25 14:46 18:08 Temperature 36.5 C Heart Rate 81 89 87 Respiratory 16 14 18 Rate Blood Pressure 156/78 H 156/78 H 166/78 H O2 Saturation 100 98 100 Oxygen O2 Source Room air - EKG (time done) 15:22 Rate: Rate (enter#) (84) Rhythm: NSR [place]: Normal Intervals: Normal NH QRS: Poor R wave progression Ischemia: Normal ST segments. No: ST elevation c/w ischemia, ST depression - Labs Labs: Laboratory Tests 07/19/22 07/19/22 07/19/22 15:17 15:17 15:17 WBC 14.8 H RBC 4.12 L Hgb 13.5 Hct 40.4 MCV 98.1 MCH 32.8 H MCHC 33.4 RDW 14.7 Plt Count 365 MPV 11.1 H Neut # (Auto) 13.1 H Lymph # (Auto) 0.9 L [place] # (Auto) 0.7 Eos # (Auto) 0.0 Baso # (Auto) 0.1 Absolute Nucleated RBC 0.00 Nucleated RBC % 0.0 Sodium 138 Potassium 3.0 L Chloride 98 L Carbon Dioxide 19 L Anion Gap 21.0 H BUN 24 H Creatinine 1.3 H Estimated GFR (MDRD) 39 L Glucose 86 Calcium 8.2 L Magnesium 1.1 L Total Bilirubin 1.8 H AST 24 ALT 17 Alkaline Phosphatase 64 Total Creatine Kinase 37 B-Natriuretic Peptide 125 H Total Protein 6.6 L Albumin 3.3 Globulin 3.3 Albumin/Globulin Ratio 1.0 Lipase 28 TSH 07/19/22 15:17 WBC RBC Hgb Hct MCV MCH MCHC RDW Plt Count MPV Neut # (Auto) Lymph # (Auto) Hawkins # (Auto) Eos # (Auto) Baso # (Auto) Absolute Nucleated RBC Nucleated RBC % Sodium Potassium Chloride Carbon Dioxide Anion Gap BUN Creatinine Estimated GFR (MDRD) Glucose Calcium Magnesium Total Bilirubin AST ALT Alkaline Phosphatase Total Creatine Kinase B-Natriuretic Peptide Total Protein Albumin Globulin Albumin/Globulin Ratio Lipase TSH 4.52 PD MEDICAL DECISION MAKING - ED course Complexity details: reviewed results (Review of recent urine culture showing Klebsiella pneumonia. Low magnesium at 1.1. Low potassium at 3.0. Creatinine somewhat elevated consistent with dehydration. Leukocytosis of 14.), re- evaluated patient (She is getting IV fluids and magnesium replacement. I gave a dose of ceftriaxone IV for her Klebsiella pneumonia UTI as a segue from her urine culture from July 14.), considered differential (The patient had a UTI which is untreated as yet because her prescription did not come in the mail yet. Presumed still UTI. Has elevated white count and general weakness. Appears dehydrated.), d/w patient, d/w campaign consultant (The patient had been having general weakness and had been unable to get from her chair for a day including till this morning. Obvious general weakness. Presume related to dehydration, electrolyte problems and UTI. Spoke with hospitalist who would come and evaluate the patient in the ER.) ED course: I felt the patient had possible admission criteria for at least observation given general weakness with UTI, leukocytosis, dehydration and electrolyte abnormalities of low potassium and magnesium. The hospitalist felt the patient did not sufficiently meet observation criteria. Departure - Departure Clinical Impression: UTI (urinary tract infection), General weakness, Hypomagnesemia, Hypokalemia, Dehydration Record reviewed to determine appropriate education?: No Prescriptions: cephALEXin [Keflex] 500 mg PO TID #20 cap Ondansetron Odt [Zofran] 4 mg TL Q6H PRN #10 tablet PRN Reason: Nausea / Vomiting Comments: The antibiotic you are getting in the mail should cover your UTI as it is sensitive to the Bactrim. However if antibiotic does not come in the mail, I wrote a separate prescription for you that you could get filled at the pharmacy. I wrote a prescription for cephalexin which may actually be preferred over Hernandez trim so it does not affect kidney function. Ondansetron if needed for nausea. Tylenol if needed for fevers or pains. Stay well-hydrated.
[2022-07-19 19:37] LABS: GLUCOSE, URINE (UA) NEGATIVE (NEGATIVE); KETONES,URINE (UA) >=80 mg/dL (NEGATIVE); LEUKOCYTE ESTERASE, URINE NEGATIVE (NEGATIVE); NITRITE,URINE NEGATIVE (NEGATIVE); OCCULT BLOOD,URINE TRACE-LYSE (NEGATIVE); PROTEIN,URINE TRACE mg/dL (NEGATIVE); UROBILINOGEN,URINE 1 (NORMAL) E.U./dL (NORMAL)
[2022-07-19 19:41] LABS: CLARITY,URINE CLEAR (CLEAR)
[2022-07-19 19:42] LABS: BILIRUBIN,URINE NEGATIVE (NEGATIVE); ICTOTEST,URINE NEGATIVE
[2022-07-19] MEDS ORDERED: POTASSIUM CHLORIDE 20 MEQ TABLET PO STA (20:10)
--- NOTE | 2022-07-19 20:43 | ED Physician Documentation ---
ED Addendum - Addendum Addendum: 07/19/22 20:41 Patient was signed out to me by Dr. Whalen. The patient received her potassium magnesium, IV fluids and IV antibiotics. Patient feels much better and is ambulating well. She would like to go home at this time. We will place her on oral antibiotics for home and have her follow-up with her doctor. Patient counseled regarding signs and symptoms for which I believe and urgent re- evaluation would be necessary. Patient with good understanding of and agreement to plan and is comfortable going home at this time This document was made in part using voice recognition software. While efforts are made to proofread this document, sound alike and grammatical errors may occur. Departure - Departure Disposition: Home, Self Care Clinical Impression: General weakness, Hypomagnesemia, Hypokalemia, Dehydration UTI (urinary tract infection) Qualifiers: Urinary tract infection type: acute cystitis Hematuria presence: without hematuria Qualified Code(s): N30.00 - Acute cystitis without hematuria Condition: Good Instructions: ED Dehydration, ED UTI Cystitis Female Follow-Up: your,doctor in 3 days [Other] Prescriptions: cephALEXin [Keflex] 500 mg PO TID #20 cap Ondansetron Odt [Zofran] 4 mg TL Q6H PRN #10 tablet PRN Reason: Nausea / Vomiting Comments: The antibiotic you are getting in the mail should cover your UTI as it is sensitive to the Bactrim. However if antibiotic does not come in the mail, I wrote a separate prescription for you that you could get filled at the pharmacy. I wrote a prescription for cephalexin which may actually be preferred over Bactrim so it does not affect kidney function. Ondansetron if needed for nausea. Tylenol if needed for fevers or pains. Stay well-hydrated. You should have your magnesium and potassium levels rechecked with your doctor later this week or early next week. Your prescriptions were sent to [facility] in [place].
[2022-07-19 22:38] LABS: BASOPHILS # (AUTO) 0.1 10^3/uL (0.0-0.1); BASOPHILS % (AUTO) 0.4 %; EOSINOPHILS # (AUTO) 0.1 10^3/uL (0.0-0.7); EOSINOPHILS % (AUTO) 0.5 %; HCT - HEMATOCRIT 34.8 % (37.0-47.0); HGB - HEMOGLOBIN 11.9 g/dL (12.0-16.0); LYMPHOCYTES # (AUTO) 1.5 10^3/uL (1.5-3.5); LYMPHOCYTES % (AUTO) 10.3 %; MEAN CORPUSCULAR HEMOGLOBIN 32.5 pg (27.0-31.0); MEAN CORPUSCULAR HGB CONC 34.2 g/dL (32.0-36.0); MEAN CORPUSCULAR VOLUME 95.1 fL (81.0-99.0); MEAN PLATELET VOLUME 11.1 fL (7.9-10.8); MONOCYTES # (AUTO) 1.2 10^3/uL (0.0-1.0); MONOCYTES % (AUTO) 8.2 %; NEUTROPHILS # (AUTO) 11.3 10^3/uL (1.5-6.6); NEUTROPHILS % (AUTO) 80.3 %; PLT - PLATELET COUNT 347 10^3/uL (130-450); RED BLOOD COUNT 3.66 10^6/uL (4.20-5.40); RED CELL DISTRIBUTION WIDTH 14.7 % (12.0-15.0)
[2022-07-19 22:47] LABS: CREATININE 1.2 mg/dL (0.4-1.0)
[2022-07-19 23:01] LABS: CALCIUM 7.8 mg/dL (8.5-10.3); POTASSIUM 3.3 mmol/L (3.5-5.0)
--- NOTE | 2022-07-19 23:27 | CT Report ---
PROCEDURE: Abdomen/Pelvis WO INDICATIONS: UTI, abd pain TECHNIQUE: Noncontrast 5 mm thick sections acquired from the diaphragms to the symphysis. 5 mm coronal and sagi ttal reformats were then performed. For radiation dose reduction, the following was used: automated exposure control, adjustment of mA and/or kV according to patient size. COMPARISON: None. FINDINGS: Image quality: Excellent. Lung bases: There is mild dependant atelectasis. Heart: Heart is normal in size. URINARY: Right Kidney and Ureter: No stones or hydronephrosis. There is an exophytic simple appearing cyst m easuring up to 3.8 cm. No hydroureter. Left Kidney and Ureter: No stones or hydronephrosis. No hydroureter. Bladder: Normal wall thickness. No stones. ABDOMEN: Liver: Noncontrast evaluation of the liver demonstrates no discrete mass. Gallbladder:Surgically absent. Biliary ducts: No biliary ductal dilatation. Pancreas: Unremarkable. Spleen: Normal in size. Adrenal Glands: No adrenal nodules. Stomach and Bowel: Stomach and small bowel loops are normal in caliber and wall thickness. No eviden ce of appendicitis. There is colonic diverticulosis without acute diverticulitis. Mild segmental wall thickening is demonstrated in the sigmoid colon suggestive of a mild colitis. There is moderate stoo l distention in the rectosigmoid colon Peritoneum: No abnormal intraperitoneal fluid. No free air. Ventral Wall: No hernia. Abdominal Nodes: No retroperitoneal or mesenteric adenopathy by size criteria. Vessels: Aorta and inferior vena cava are normal in size. PELVIS: Pelvic Organs: Unremarkable. Pelvic Nodes: No enlarged lymph nodes. Miscellaneous: No inguinal hernias identified. Bones: Visualized osseous structures demonstrate no suspicious focal lesions. IMPRESSION: 1. No evidence of hydronephrosis. 2. Mild segmental wall thickening in the sigmoid colon suggestive of a mild colitis. 3. Moderate stool distention in the rectosigmoid colon distally suggestive of constipation or impacti on. No evidence of bowel obstruction. Reviewed by: Carter Valladares MD on 07/19/2022 11:28 PM PDT Approved by: Carter Valladares MD on 07/19/2022 11:28 PM PDT Station ID: [id number]
[2022-07-20 00:29] VITALS: BP 189/66
== END 2022-07-20 07:42 | disposition home or self-care (01) ==
LOC: EDUNIT# → ED 14:07
DX: N30.00 Acute cystitis without hematuria (principal); E86.0 Dehydration; E87.6 Hypokalemia; E83.42 Hypomagnesemia
CPT/HCPCS: 36415; 51701; 71045; 74176; 80048; 80053; 81003; 82550; 83605; 83690; 83735; 83880; 84443; 85025; 87635; 93005; 96361; 96365; 96375; 99284; A9270; J7120; 81001; 87086

== ENCOUNTER 2022-07-20 10:42 | Outpatient (CLI) | payer MEDICARE | END 2022-07-20 10:43 | disposition left against medical advice (07) | LOC: EMS 10:42 | DX: R53.1 Weakness (principal); N39.0 Urinary tract infection, site not specified; R62.7 Adult failure to thrive; Z59.89 Other problems related to housing and economic circumstances ==

== ENCOUNTER 2022-08-02 11:01 | Outpatient (CLI) | payer MEDICARE | END 2022-08-02 11:02 | disposition EMS.NT | LOC: EMS 11:01 | DX: Z03.89 Encounter for observation for other suspected diseases and conditions ruled out (principal) ==

== ENCOUNTER 2022-08-04 13:10 | Outpatient (CLI) | payer MEDICARE | END 2022-08-04 23:59 | disposition critical access hospital (66) | LOC: EMS 13:10 | DX: R07.89 Other chest pain (principal); R42 Dizziness and giddiness | CPT/HCPCS: A0425; A0429 ==

== ENCOUNTER 2022-08-04 13:37 | Emergency (ER) | payer MEDICARE ==
--- NOTE | 2022-08-04 14:18 | XRAY Report ---
PROCEDURE: Chest 1 View X-Ray INDICATIONS: chest pain TECHNIQUE: One view of the chest was acquired. COMPARISON: Chest x-ray 07/19/2022 FINDINGS: Surgical changes and devices: None. Lungs and pleura: No pleural effusions or pneumothorax. Lungs are clear. Mediastinum: Mediastinal contours appear normal. Heart size is normal. Bones and chest wall: No suspicious bony lesions. Overlying soft tissues appear unremarkable. IMPRESSION: No acute pulmonary process. Reviewed by: Edwige Muller MD on 08/04/2022 2:17 PM PDT Approved by: Edwige Muller MD on 08/04/2022 2:17 PM PDT Station ID: [id number]
[2022-08-04 14:38] LABS: BASOPHILS # (AUTO) 0.1 10^3/uL (0.0-0.1); EOSINOPHILS # (AUTO) 0.1 10^3/uL (0.0-0.7); EOSINOPHILS % (AUTO) 1.7 %; HCT - HEMATOCRIT 37.6 % (37.0-47.0); HGB - HEMOGLOBIN 12.1 g/dL (12.0-16.0); LYMPHOCYTES # (AUTO) 0.9 10^3/uL (1.5-3.5); LYMPHOCYTES % (AUTO) 11.5 %; MEAN CORPUSCULAR HEMOGLOBIN 32.2 pg (27.0-31.0); MEAN CORPUSCULAR HGB CONC 32.2 g/dL (32.0-36.0); MEAN PLATELET VOLUME 11.4 fL (7.9-10.8); MONOCYTES # (AUTO) 0.6 10^3/uL (0.0-1.0); MONOCYTES % (AUTO) 6.8 %; NEUTROPHILS # (AUTO) 6.5 10^3/uL (1.5-6.6); NEUTROPHILS % (AUTO) 78.6 %; PLT - PLATELET COUNT 290 10^3/uL (130-450); RED BLOOD COUNT 3.76 10^6/uL (4.20-5.40); WHITE BLOOD COUNT 8.2 x10^3/uL (4.8-10.8)
[2022-08-04 14:46] LABS: BILIRUBIN,TOTAL 0.5 mg/dL (0.2-1.0); CALCIUM 8.6 mg/dL (8.5-10.3); CREATININE 1.3 mg/dL (0.4-1.0); POTASSIUM 4.1 mmol/L (3.5-5.0); TOTAL PROTEIN 6.1 g/dL (6.7-8.2)
--- NOTE | 2022-08-04 16:35 | ED Physician Documentation ---
PD HPI CHEST PAIN - Stated complaint Stated Complaint: NEAR SYNCOPE - Chief complaint Chief Complaint: Cardiac - History obtained from History obtained from: Patient - Additional information Additional information: The patient comes the emergency department via EMS for chief complaint of lightheadedness and diaphoresis this afternoon. The patient had just eaten her lunch when she suddenly felt lightheaded and became sweaty. Patient also felt very lightheaded. The episode lasted about 5 minutes after which the patient felt totally normal again. She states this is not happened before. She denies any nausea or vomiting. She states she feels completely fine now. The patient lives at home with her dog and has a home health aide who comes and helps her during the day. The home health aide was the one who called EMS. Patient states that she has become deconditioned just because she has not felt like going to the work to get out of bed and walk or make her food and so she spends most of her time in bed. Per medics, APS is on the case. The patient does have home PT set up and they will be coming to help her get up and moving again. The patient states its been like this for many months now, but she does like to live at home, and is not interested in assisted living or jail. No other complaints at this time. Review of Systems Ten Systems: 10 systems reviewed and negative Constitutional: reports: Reviewed and negative Eyes: reports: Reviewed and negative Ears: reports: Reviewed and negative Nose: reports: Reviewed and negative Throat: reports: Reviewed and negative Cardiac: reports: Chest pain / pressure Respiratory: reports: Reviewed and negative GI: reports: Reviewed and negative : reports: Reviewed and negative Skin: reports: Reviewed and negative Musculoskeletal: reports: Reviewed and negative Neurologic: reports: Reviewed and negative Psychiatric: reports: Reviewed and negative Endocrine: reports: Reviewed and negative Immunocompromised: reports: Reviewed and negative PD PAST MEDICAL HISTORY - Past Medical History Cardiovascular: Hypertension Respiratory: Pneumonia, Shortness of breath Neuro: None Endocrine/Autoimmune: None GI: GERD 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 : Chronic bladder infection HEENT: Other Psych: None Musculoskeletal: Osteoarthritis Derm: None - Past Surgical History Past Surgical History: Yes General: Cholecystectomy, Appendectomy Ortho: Other - Present Medications Home Medications: Ambulatory Orders Medication Instructions Recorded Confirmed Naproxen Sodium/P-Ephed HCl [Aleve 1 each PO BID 07/29/16 08/01/16 Sinus and Headache Cplt] Omeprazole [PriLOSEC] 20 mg PO DAILY 06/09/16 06/12/16 Quinapril HCl 20 mg PO BID 06/09/16 06/12/16 atenoloL [Atenolol] 25 mg PO BID 06/09/16 06/12/16 hydroCHLOROthiazide [Hydrodiuril] 12.5 mg PO DAILY 06/09/16 06/12/16 Ondansetron Odt [Zofran] 4 mg TL Q6H PRN #10 tablet 07/19/22 cephALEXin [Keflex] 500 mg PO TID #20 cap 07/19/22 - Allergies Allergies/Adverse Reactions: Allergies Allergy/AdvReac Type Severity Reaction Status Date / Time Penicillins Allergy Itching Verified 08/04/22 13:54 - Social History Does the pt smoke?: No Smoking Status: Never smoker Does the pt drink ETOH?: No Does the pt have substance abuse?: No - Immunizations Immunizations are current?: No - POLST Patient has POLST: No PD ED PE NORMAL - Vitals Vital signs reviewed: Yes - General General: Alert and oriented X 3, No acute distress, Well developed/nourished - HEENT HEENT: Atraumatic, PERRL, EOMI, Moist mucous membranes - Neck Neck: Supple, no meningeal sign - Cardiac Cardiac: RRR, No murmur, Strong equal pulses - Respiratory Respiratory: No respiratory distress, Clear bilaterally - Abdomen Abdomen: Soft, Non tender, Non distended - Derm Derm: Normal color, Warm and dry, No rash - Extremities Extremities: No deformity, Other (Trace bilateral pretibial pitting edema) - Neuro Neuro: Alert and oriented X 3 - Psych Psych: Normal mood, Normal affect Results - Vitals Vitals: Vital Signs - 24 hr 08/04/22 13:49 Temperature 36.8 C Heart Rate 74 Respiratory 16 Rate Blood Pressure 143/63 H O2 Saturation 100 Oxygen O2 Source Room air - Labs Labs: Laboratory Tests 08/04/22 08/04/22 08/04/22 14:24 14:24 14:24 WBC 8.2 RBC 3.76 L Hgb 12.1 Hct 37.6 MCV 100.0 H MCH 32.2 H MCHC 32.2 RDW 15.0 Plt Count 290 MPV 11.4 H Neut # (Auto) 6.5 Lymph # (Auto) 0.9 L Towner # (Auto) 0.6 Eos # (Auto) 0.1 Baso # (Auto) 0.1 Absolute Nucleated RBC 0.00 Nucleated RBC % 0.0 Sodium 138 Potassium 4.1 Chloride 105 Carbon Dioxide 24 Anion Gap 9.0 BUN 32 H Creatinine 1.3 H Estimated GFR (MDRD) 39 L Glucose 110 H Calcium 8.6 Total Bilirubin 0.5 AST 26 ALT 26 Alkaline Phosphatase 47 Troponin I High Sens 14.7 Total Protein 6.1 L Albumin 3.0 L Globulin 3.1 Albumin/Globulin Ratio 1.0 Lipase 34 08/04/22 15:52 WBC RBC Hgb Hct MCV MCH MCHC RDW Plt Count MPV Neut # (Auto) Lymph # (Auto) Towner # (Auto) Eos # (Auto) Baso # (Auto) Absolute Nucleated RBC Nucleated RBC % Sodium Potassium Chloride Carbon Dioxide Anion Gap BUN Creatinine Estimated GFR (MDRD) Glucose Calcium Total Bilirubin AST ALT Alkaline Phosphatase Troponin I High Sens 13.5 Total Protein Albumin Globulin Albumin/Globulin Ratio Lipase - Rads (name of study) chest xr Radiology: Final report received, EMP read indepedently, See rad report PD MEDICAL DECISION MAKING - ED course Complexity details: reviewed results, re-evaluated patient, considered differential, d/w patient ED course: The patient was feeling completely normal upon her arrival in the emergency department. Her labs including repeat troponin were unremarkable. She had had a normal EKG in route and was in normal sinus rhythm on the monitor. I discussed with her that not clear exactly what caused her episode. However, if she has further episodes she will need to be evaluated further. Patient like to go home. We have discussed the usual indications for return. Departure - Departure Disposition: 01 Home, Self Care Clinical Impression: Chest pain Qualifiers: Chest pain type: unspecified Qualified Code(s): R07.9 - Chest pain, unspecified Condition: Stable Instructions: ED Chest Pain Atypical Unkn Cause Comments: It is not clear what caused your chest pain episode today. However, your EKG looks great and 2 sets of cardiac enzymes have been negative. It is important that you follow-up with your primary care physician for further evaluation, should you continue to have episodes of chest pain. If you have further concerns about your care situation at home, you need to work with your primary care physician. If home health does not end up working out for you, than the next step is to go to an assisted living facility or jail, and this should be arranged through your primary doctor.
--- NOTE | 2022-08-04 20:07 | ED Physician Documentation ---
ED Addendum - Addendum Addendum: 08/04/22 20:[address] Carrera at shift change. Briefly this is a deconditioned 82-year-old woman who was discharged by her, but continues to be in the emergency department. I spoke with the patient, she lives alone with her dog, her sister refuses to pick her up, but we also discussed that there is no medical need for hospitalization or continued stay in the emergency department. I left a voicemail for her sister to call back to discuss as it would be best if the patient could go home. She is not apparently safe to go home alone though.
[2022-08-05 10:15] VITALS: BP 155/64
== END 2022-08-05 12:54 | disposition home or self-care (01) ==
LOC: EDUNIT# → ED 13:37
DX: R07.9 Chest pain, unspecified (principal); I10 Essential (primary) hypertension
CPT/HCPCS: 36415; 80053; 83690; 84484; 85025; 93005; 99282; 99284

== ENCOUNTER 2022-09-01 13:04 | Outpatient (CLI) | payer MEDICARE ==
[2022-09-01 14:48] LABS: BILIRUBIN,URINE NEGATIVE (NEGATIVE); GLUCOSE, URINE (UA) NEGATIVE (NEGATIVE); KETONES,URINE (UA) NEGATIVE (NEGATIVE); LEUKOCYTE ESTERASE, URINE LARGE (NEGATIVE); NITRITE,URINE POSITIVE (NEGATIVE); OCCULT BLOOD,URINE TRACE-INTA (NEGATIVE); PROTEIN,URINE NEGATIVE (NEGATIVE); UROBILINOGEN,URINE 0.2 (NORMAL) E.U./dL (NORMAL)
[2022-09-01 15:00] LABS: CALCIUM 9.1 mg/dL (8.5-10.3); CREATININE 1.3 mg/dL (0.4-1.0); MAGNESIUM 1.3 mg/dL (1.7-2.8); POTASSIUM 3.9 mmol/L (3.5-5.0)
[2022-09-01 15:16] LABS: CLARITY,URINE HAZY (CLEAR)
[2022-09-01 15:21] LABS: BACTERIA,URINE Many /HPF (None Seen); RBC,URINE 0-5 /HPF (0-5); SQUAMOUS EPITHELIAL CELL,UR FEW Squamous (<= Few); WBC,URINE >25 /HPF (0-5)
== END 2022-09-01 13:05 | disposition home or self-care (01) ==
LOC: LAB.S 13:04
PROVIDERS: ATTEND Internal Medicine Nephrology
DX: N30.00 Acute cystitis without hematuria (principal); E83.40 Disorders of magnesium metabolism, unspecified; N05.9 Unspecified nephritic syndrome with unspecified morphologic changes
CPT/HCPCS: 36415; 80048; 81001; 81003; 83735; 87077; 87086; 87181

== ENCOUNTER 2022-11-14 23:04 | Outpatient (CLI) | payer MEDICARE | END 2022-11-14 23:05 | disposition EMS.NT | LOC: EMS 23:04 | DX: Z03.89 Encounter for observation for other suspected diseases and conditions ruled out (principal) ==

== ENCOUNTER 2022-12-25 14:28 | Outpatient (CLI) | payer MEDICARE ==
[2022-12-25 20:16] LABS: BASOPHILS # (AUTO) 0.1 10^3/uL (0.0-0.1); BASOPHILS % (AUTO) 1.3 %; EOSINOPHILS # (AUTO) 0.3 10^3/uL (0.0-0.7); EOSINOPHILS % (AUTO) 3.3 %; LYMPHOCYTES # (AUTO) 2.1 10^3/uL (1.5-3.5); LYMPHOCYTES % (AUTO) 26.5 %; MEAN CORPUSCULAR HEMOGLOBIN 33.3 pg (27.0-31.0); MEAN CORPUSCULAR HGB CONC 29.2 g/dL (32.0-36.0); MEAN PLATELET VOLUME 11.6 fL (7.9-10.8); MONOCYTES # (AUTO) 0.6 10^3/uL (0.0-1.0); MONOCYTES % (AUTO) 7.4 %; NEUTROPHILS # (AUTO) 4.9 10^3/uL (1.5-6.6); NEUTROPHILS % (AUTO) 61.2 %; PLT - PLATELET COUNT 299 10^3/uL (130-450); RED BLOOD COUNT 4.21 10^6/uL (4.20-5.40); RED CELL DISTRIBUTION WIDTH 15.2 % (12.0-15.0); WHITE BLOOD COUNT 7.9 x10^3/uL (4.8-10.8)
[2022-12-25 20:34] LABS: CALCIUM 9.3 mg/dL (8.5-10.3); CREATININE 1.4 mg/dL (0.4-1.0); PHOSPHORUS 3.9 mg/dL (2.5-4.6)
[2022-12-25 20:49] LABS: PLATELET ESTIMATE, MANUAL NORMAL (130-450,000) (NORMAL); PLATELET MORPHOLOGY NORMAL APPEARANCE (NORMAL); SLIDE REVIEW? Indicated
== END 2022-12-25 14:29 | disposition home or self-care (01) ==
LOC: LAB.S 14:28
PROVIDERS: ATTEND Internal Medicine Nephrology
DX: N05.9 Unspecified nephritic syndrome with unspecified morphologic changes (principal); I50.32 Chronic diastolic (congestive) heart failure; D70.9 Neutropenia, unspecified; D63.1 Anemia in chronic kidney disease; E83.30 Disorder of phosphorus metabolism, unspecified; N25.81 Secondary hyperparathyroidism of renal origin
CPT/HCPCS: 36415; 80048; 83880; 83970; 84100; 85025

== ENCOUNTER 2023-02-01 14:39 | Outpatient (CLI) | payer MEDICARE ==
[2023-02-01 19:52] LABS: HCT - HEMATOCRIT 35.9 % (37.0-47.0); HGB - HEMOGLOBIN 11.3 g/dL (12.0-16.0); MEAN CORPUSCULAR HEMOGLOBIN 34.6 pg (27.0-31.0); MEAN CORPUSCULAR HGB CONC 31.5 g/dL (32.0-36.0); MEAN CORPUSCULAR VOLUME 109.8 fL (81.0-99.0); MEAN PLATELET VOLUME 10.9 fL (7.9-10.8); RED BLOOD COUNT 3.27 10^6/uL (4.20-5.40); RED CELL DISTRIBUTION WIDTH 15.8 % (12.0-15.0); WHITE BLOOD COUNT 6.7 x10^3/uL (4.8-10.8)
[2023-02-01 20:09] LABS: CALCIUM 8.6 mg/dL (8.5-10.3); CREATININE 1.2 mg/dL (0.4-1.0); PHOSPHORUS 3.5 mg/dL (2.5-4.6); POTASSIUM 4.3 mmol/L (3.5-5.0)
== END 2023-02-01 14:40 | disposition home or self-care (01) ==
LOC: LAB.S 14:39
PROVIDERS: ATTEND Internal Medicine Nephrology
DX: N05.9 Unspecified nephritic syndrome with unspecified morphologic changes (principal); D70.9 Neutropenia, unspecified; D63.1 Anemia in chronic kidney disease; I50.32 Chronic diastolic (congestive) heart failure; N25.81 Secondary hyperparathyroidism of renal origin; E83.30 Disorder of phosphorus metabolism, unspecified
CPT/HCPCS: 36415; 80048; 83880; 83970; 84100; 85027

== ENCOUNTER 2023-05-29 12:53 | Outpatient (CLI) | payer MEDICARE ==
[2023-05-29 14:55] LABS: BASOPHILS # (AUTO) 0.1 10^3/uL (0.0-0.1); BASOPHILS % (AUTO) 1.2 %; EOSINOPHILS # (AUTO) 0.1 10^3/uL (0.0-0.7); EOSINOPHILS % (AUTO) 2.3 %; HCT - HEMATOCRIT 40.8 % (37.0-47.0); HGB - HEMOGLOBIN 12.7 g/dL (12.0-16.0); LYMPHOCYTES # (AUTO) 1.8 10^3/uL (1.5-3.5); LYMPHOCYTES % (AUTO) 32.1 %; MEAN CORPUSCULAR HEMOGLOBIN 32.3 pg (27.0-31.0); MEAN CORPUSCULAR HGB CONC 31.1 g/dL (32.0-36.0); MEAN CORPUSCULAR VOLUME 103.8 fL (81.0-99.0); MEAN PLATELET VOLUME 10.8 fL (7.9-10.8); MONOCYTES # (AUTO) 0.6 10^3/uL (0.0-1.0); MONOCYTES % (AUTO) 10.1 %; NEUTROPHILS # (AUTO) 3.1 10^3/uL (1.5-6.6); NEUTROPHILS % (AUTO) 54.1 %; PLT - PLATELET COUNT 210 10^3/uL (130-450); RED BLOOD COUNT 3.93 10^6/uL (4.20-5.40); RED CELL DISTRIBUTION WIDTH 13.5 % (12.0-15.0); WHITE BLOOD COUNT 5.6 x10^3/uL (4.8-10.8)
[2023-05-29 15:22] LABS: THYROID STIMULATING HORMONE 4.06 uIU/mL (0.34-5.60)
[2023-05-29 16:16] LABS: ALBUMIN 3.7 g/dL (3.2-5.5); ALBUMIN/GLOBULIN RATIO 1.2 (1.0-2.2); ALKALINE PHOSPHATASE 67 IU/L (42-121); ALT ALANINE AMINOTRANSFERASE 15 IU/L (10-60); AST ASPARTATE AMINOTRANSFERASE 22 IU/L (10-42); BILIRUBIN,TOTAL 0.7 mg/dL (0.2-1.0); BUN - BLOOD UREA NITROGEN 29 mg/dL (6-20); CALCIUM 8.8 mg/dL (8.5-10.3); CARBON DIOXIDE - CO2 26 mmol/L (21-32); CHLORIDE 104 mmol/L (101-111); CHOL/HDL RATIO 2.3 (<4.4); CHOLESTEROL 177 mg/dL; CREATININE 1.5 mg/dL (0.4-1.0); GFR - MDRD 33 (>89); GLUCOSE 110 mg/dL (70-100); HDL CHOLESTEROL 76 mg/dL; LDL CHOLESTEROL,CALCULATED 82 mg/dL; LDL/HDL RATIO 1.1 (<4.4); MAGNESIUM 1.9 mg/dL (1.7-2.8); POTASSIUM 4.4 mmol/L (3.5-5.0); SODIUM 137 mmol/L (135-145); TOTAL PROTEIN 6.7 g/dL (6.7-8.2); TRIGLYCERIDES 97 mg/dL; VLDL CHOLESTEROL 19 mg/dL
== END 2023-05-29 12:54 | disposition home or self-care (01) ==
LOC: LAB.S 12:53
PROVIDERS: ATTEND Internal Medicine Nephrology
DX: I12.9 Hypertensive chronic kidney disease with stage 1 through stage 4 chronic kidney disease, or unspecified chronic kidney disease (principal); E11.22 Type 2 diabetes mellitus with diabetic chronic kidney disease; N18.32 Chronic kidney disease, stage 3b; D70.9 Neutropenia, unspecified; E78.00 Pure hypercholesterolemia, unspecified; Z13.29 Encounter for screening for other suspected endocrine disorder; E83.40 Disorders of magnesium metabolism, unspecified; D63.1 Anemia in chronic kidney disease
CPT/HCPCS: 36415; 80053; 80061; 83721; 83735; 84443; 85025

== ENCOUNTER 2023-09-25 13:01 | Outpatient (CLI) | payer MEDICARE ==
[2023-09-25 14:42] LABS: HCT - HEMATOCRIT 39.2 % (37.0-47.0); HGB - HEMOGLOBIN 11.8 g/dL (12.0-16.0); MEAN CORPUSCULAR HEMOGLOBIN 32.1 pg (27.0-31.0); MEAN CORPUSCULAR HGB CONC 30.1 g/dL (32.0-36.0); MEAN CORPUSCULAR VOLUME 106.5 fL (81.0-99.0); MEAN PLATELET VOLUME 11.1 fL (7.9-10.8); RED BLOOD COUNT 3.68 10^6/uL (4.20-5.40); RED CELL DISTRIBUTION WIDTH 13.2 % (12.0-15.0); WHITE BLOOD COUNT 8.2 x10^3/uL (4.8-10.8)
[2023-09-25 16:10] LABS: CALCIUM 9.2 mg/dL (8.5-10.3); CREATININE 1.6 mg/dL (0.6-1.3); MAGNESIUM 1.7 mg/dL (1.7-2.3)
== END 2023-09-25 13:02 | disposition home or self-care (01) ==
LOC: LAB.S 13:01
PROVIDERS: ATTEND Internal Medicine Nephrology
DX: E11.9 Type 2 diabetes mellitus without complications (principal); N05.9 Unspecified nephritic syndrome with unspecified morphologic changes; E83.40 Disorders of magnesium metabolism, unspecified; D70.9 Neutropenia, unspecified; D63.1 Anemia in chronic kidney disease
CPT/HCPCS: 36415; 80048; 83735; 85027

== ENCOUNTER 2024-04-03 20:55 | Outpatient (CLI) | payer MEDICARE | END 2024-04-03 23:59 | disposition critical access hospital (66) | LOC: EMS 20:55 | DX: R55 Syncope and collapse (principal); R53.1 Weakness | CPT/HCPCS: A0425; A0429 ==

== ENCOUNTER 2024-07-25 10:44 | Outpatient (CLI) | payer MEDICARE | END 2024-07-25 10:45 | disposition critical access hospital (66) | LOC: EMS 10:44 | DX: S51.811A Laceration without foreign body of right forearm, initial encounter (principal); W54.8XXA Other contact with dog, initial encounter; Z79.01 Long term (current) use of anticoagulants; R60.0 Localized edema | CPT/HCPCS: A0425; A0429 ==

== ENCOUNTER 2024-07-25 11:13 | Emergency (ER) | payer MEDICARE ==
--- NOTE | 2024-07-25 11:33 | ED Physician Documentation ---
History of Present Illness - Stated complaint Stated Complaint: SKIN TEAR - Chief complaint Chief Complaint: Wound - Additonal information Additional information: Patient is an 84-year-old female presenting to the emergency department with ri ght leg swelling. Patient notes She currently resides at assisted living facility where she receives wound care and has been having assistance with bilateral legs. This has been going on for a month. However today she continues to have persistent lower leg swelling. Patient notes worsening redness and swelling to right leg due to swelling. Patient is on lasix for history of CHF and on eliquis for history of atrial fibrillation, no history of DVTs. 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 : Chronic bladder infection HEENT: Other Psych: None Musculoskeletal: Osteoarthritis Derm: None - Past Surgical History Past Surgical History: Yes General: Cholecystectomy, Appendectomy Ortho: Other HEENT: Cataracts, Tonsil/Adenoidectomy Derm: Skin grafts - Present Medications Home Medications: Ambulatory Orders Medication Instructions Recorded Confirmed Acetaminophen [Tylenol] 650 mg PO Q6H PRN 04/04/24 04/04/24 Doxycycline [Vibramycin] 100 mg PO BID 7 Days #14 tablet 07/25/24 - Allergies Allergies/Adverse Reactions: Allergies Allergy/AdvReac Type Severity Reaction Status Date / Time Penicillins Allergy Itching Verified 07/25/24 11:19 - Social History Does the pt smoke?: No Smoking Status: Never smoker Does the pt drink ETOH?: No Does the pt have substance abuse?: No - Immunizations Immunizations are current?: No - POLST Patient has POLST: No PD ED PE NORMAL - Vitals Vital signs reviewed: Yes - General General: Alert and oriented X 3 - HEENT HEENT: Atraumatic - Neck Neck: Supple, no meningeal sign - Cardiac Cardiac: RRR, No murmur, No gallop, No rub - Respiratory Respiratory: No respiratory distress, Clear bilaterally - Abdomen Abdomen: Normal bowel sounds, Soft, Non tender, Non distended - Back Back: No CVA TTP - Derm Derm: Normal color, Warm and dry, No rash (Right lower leg swelling with erythema and warmth to pretibial ridge region no significant discharge no significant wounds. No streaking up the leg pain edema noted but is equal bilaterally. Pulses intact distally.) - Extremities Extremities: No deformity - Neuro Neuro: Alert and oriented X 3 Results - Vitals Vitals: Vital Signs - 24 hr 07/25/24 07/25/24 07/25/24 11:19 11:22 14:31 Temperature 36.5 C Heart Rate 94 66 77 Respiratory 16 16 18 Rate Blood Pressure 105/57 L 113/61 141/72 H O2 Saturation 97 95 98 Oxygen O2 Source Room air PD Medical Decision Making - ED course Complexity details: reviewed old records, reviewed results ED course: Patient is an 84-year-old female with bilateral leg swelling that is chronic but notes worsening redness to her right leg. Patient comes from assisted living to a center where she sees wound care and they are concerned for cellulitis to her right leg. Patient has some erythema that is over the pretibial region dark anne red in color with warmth to palpation. No open wounds appreciated no signs of trauma or abrasions. Pulses intact distally. Labs will be held here in emergency department will obtain ultrasound of bilateral legs given equal swelling and pain edema to bilateral legs. However low suspicion for DVT at this time as patient is on 5 mg of Eliquis daily for history of atrial fibrillation and has history of CHF on Lasix daily. Presents with patient denies any chest pain or shortness of breath associated with her symptoms. Vitals remained stable while here in emergency department. Ultrasound here in emergency department shows Departure - Departure Disposition: 01 Home, Self Care Clinical Impression: Abrasion, right lower leg, initial encounter, Swelling of right lower extremity, Cellulitis Condition: Good Prescriptions: Doxycycline [Vibramycin] 100 mg PO BID 7 Days #14 tablet Comments: You were seen here in the emergency department for your lower leg swelling and redness your symptoms most likely secondary to his cellulitis no signs of clot in your leg I have started you on antibiotics you are allergic to penicillins have started you on doxycycline. Please monitor for any worsening swelling pain redness or warmth. Follow-up with your PCP in the outpatient setting to ensure resolution of symptoms. Forms: PCP List
--- NOTE | 2024-07-25 14:18 | Ultrasound Report ---
PROCEDURE: Duplex Ext Veins Bilateral INDICATIONS: Rebekah Angela PA-C TECHNIQUE: Real-time imaging, as well as color and pulse Doppler interrogation, were performed of the deep veins of both legs from the inguinal ligament to the popliteal fossa. Attempted visualization of the calf veins was performed. COMPARISON: None FINDINGS: The deep veins are normally compressible, and free of intraluminal thrombus. Color and pu lse Doppler demonstrate normal phasic intravascular flow. There is normal augmentation response to d istal compression maneuver. IMPRESSION: No deep venous thrombosis of the bilateral lower extremities. Reviewed by: Jason Santana MD on 07/25/2024 2:16 PM PDT Approved by: Jason Santana MD on 07/25/2024 2:16 PM PDT Station ID: [id number]
[2024-07-25 14:33] VITALS: O2SAT 98
[2024-07-25] MEDS: DOXYCYCLINE 100 MG TABLET PO STA (15:32)
[2024-07-25 15:49] VITALS: BP 111/89
== END 2024-07-25 16:27 | disposition home or self-care (01) ==
LOC: EDUNIT# → ED 11:13
DX: S80.811A Abrasion, right lower leg, initial encounter (principal); L03.115 Cellulitis of right lower limb; X58.XXXA Exposure to other specified factors, initial encounter; Y92.199 Unspecified place in other specified residential institution as the place of occurrence of the external cause; I48.91 Unspecified atrial fibrillation; Z79.01 Long term (current) use of anticoagulants; Z88.0 Allergy status to penicillin
CPT/HCPCS: 93970; 99283; 99284; A9270

== ENCOUNTER 2024-07-25 16:28 | Outpatient (CLI) | payer MEDICARE | END 2024-07-25 23:59 | disposition home or self-care (01) | LOC: EMS 16:28 | PROVIDERS: ATTEND Physician Assistant | DX: Z74.01 Bed confinement status (principal) | CPT/HCPCS: A0425; A0428 ==